=== PATIENT | male | born 1950 | race Caucasian/White ===

== ENCOUNTER 2021-02-28 13:16 | Emergency (ER) | payer MEDICARE ==
[2021-02-28 13:32] VITALS: TEMP 99.5
--- NOTE | 2021-02-28 13:56 | ED ---
General Adult HPI - General Chief complaint: Upper Respiratory Infection Stated complaint: covid+, wants infusion Time Seen by Provider: 02/28/21 13:30 Source: patient, RN notes reviewed, old records reviewed Limitations: no limitations - History of Present Illness Initial comments: This is a 71-year-old male presents emergency Department complaining of having some body aches and fever starting on February 24. Patient states he was tested for COVID yesterday and was positive straight comes in today for the infusion of antibodies. Patient states he has no difficulty breathing or shortness of breath per patient denies any cough. Patient states he has a little bit loss of taste. Patient denies any diarrhea. Patient denies any abdominal pain. Patient did not get the COVID vaccine. - Related Data Allergies Allergy/AdvReac Type Severity Reaction Status Date / Time Penicillins Allergy Unknown Verified 02/28/21 13:32 Review of Systems ROS Statement: Those systems with pertinent positive or pertinent negative responses have been documented in the HPI. ROS Other: All systems not noted in ROS Statement are negative. 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 Patient is nontoxic and well-hydrated and is in mild distress. ENT: Neck is soft and supple. No significant lymphadenopathy is noted. Oropharynx is clear. Moist mucous membranes. Neck has full range of motion without eliciting any pain. EYES: The sclera were anicteric and conjunctiva were pink and moist. Extraocular movements were intact and pupils were equal round and reactive to light. Eyelids were unremarkable. PULMONARY: Unlabored respirations. Good breath sounds bilaterally. No audible rales rhonchi or wheezing was noted. CARDIOVASCULAR: There is a regular rate and rhythm without any murmurs gallops or rubs. ABDOMEN: Soft and nontender with normal bowel sounds. SKIN: Skin is clear with no lesions or rashes and otherwise unremarkable. NEUROLOGIC: Patient is alert and oriented x3. Cranial nerves II through XII are grossly intact. Motor and sensory are also intact. Normal speech, volume and content. Symmetrical smile. MUSCULOSKELETAL: Normal extremities with adequate strength and full range of motion. LYMPHATICS: No significant lymphadenopathy is noted PSYCHIATRIC: Normal psychiatric evaluation. Limitations: no limitations Course Vital Signs 02/28/21 13:29 Temperature 99.5 F Pulse Rate 89 Respiratory 20 Rate Blood Pressure 129/88 O2 Sat by Pulse 96 Oximetry Medical Decision Making - Medical Decision Making Patient is going to receive monoclonal antibodies explain the risks he was willing to accept the risks and he will receive monoclonal antibodies and be observed for an hour. - Lab Data Lab Results 02/28/21 Range/Units 13:34 Coronavirus (PCR) Detected A (Not Detectd) Disposition Clinical Impression: COVID-19 Disposition: HOME SELF-CARE Condition: Good Instructions (If sedation given, give patient instructions): Coronavirus Disease 2019 (COVID-19) Additional Instructions: patient is to return to the emergency department if he is having any difficulty breathing. Is patient prescribed a controlled substance at d/c from ED?: No Referrals: Armando Pedraza DO [Primary Care Provider] - 1-2 days Time of Disposition: 14:12
[2021-02-28] MEDS ORDERED: SODIUM CHLORIDE 0.9% 50 ML IVPB ONE (14:15)
[2021-02-28] MEDS ORDERED: CASIRIVIMAB (REGN10933) (EUA) 600 MG, IMDEVIMAB (REGN10987) (EUA) 600 MG in SODIUM CHLO... IVPB ONE (14:30)
[2021-02-28 16:38] VITALS: BP 113/77; PULSE 80; RESP 18
== END 2021-02-28 16:38 | disposition home or self-care (01) ==
LOC: EC 13:16
DX: U07.1 COVID-19 (principal); E11.9 Type 2 diabetes mellitus without complications; E78.5 Hyperlipidemia, unspecified; I10 Essential (primary) hypertension; I25.2 Old myocardial infarction; Z72.89 Other problems related to lifestyle
CPT/HCPCS: 87635; 99283; 96365; Q0243